=== PATIENT | male | born 1995 | race Caucasian/White ===

== ENCOUNTER 2021-10-28 04:02 | Emergency (ER) | payer SELFPAY ==
[~2021-10-28] VITALS: Ht 175.3 cm; Wt 70.3 kg
[2021-10-28] MEDS ORDERED: LORAZEPAM INJ 2 MG/ML VIAL ONE ×2 (04:08→04:52)
--- NOTE | 2021-10-28 04:16 | NUR ---
PATIENT [id number] AND [employer] FROM [address]RE[address] C/O USING [facility] 4 HOURS AGO PER EMS. PATIENT IS A/O X 2, RR EVEN AND UNLABORED. PATIENT TAKEN TO ER BED 14. PATIENT CONNECTED TO CARDIAC AND POX MONITORS. PATIENT YELLING AT STAFF, TRYING TO GET OUT OF BED, REMOVING LEADS, MADE AWARE.
--- NOTE | 2021-10-28 04:19 | NUR ---
UNABLE TO DRAW BLOOD AND COLLECTED URINE AT THIS TIME
[2021-10-28] MEDS ORDERED: LORAZEPAM INJ 2 MG/ML VIAL IM ONE ×2 (04:30→05:00)
[2021-10-28] MEDS ORDERED: diphenhydrAMINE HCL 50 MG/ML VIAL ONE (05:25)
[2021-10-28] MEDS ORDERED: HALOPERIDOL LACTATE INJ 5 MG/ML VIAL ONE (05:25)
[2021-10-28] MEDS ORDERED: diphenhydrAMINE HCL 50 MG/ML VIAL IM ONE (05:30)
[2021-10-28] MEDS ORDERED: HALOPERIDOL LACTATE INJ 5 MG/ML VIAL IM ONE (05:30)
--- NOTE | 2021-10-28 05:58 | NUR ---
BLOOD DRAWN AND SENT TO LAB.
[2021-10-28] MEDS ORDERED: IV NS 0.9% 1,000 ML IV ONE (06:30)
[2021-10-28 06:34] LABS: BASOPHILS % (AUTO) 0.2 % (0.0-2.0); EOSINOPHILS % (AUTO) 0.2 % (0.0-6.0); HEMATOCRIT 45 % (39-51); HEMOGLOBIN 14.8 g/dL (13.5-17.5); LYMPHOCYTES # (AUTO) 1.5 K/uL (0.8-4.8); LYMPHOCYTES % (AUTO) 10.1 % (20.0-44.0); MEAN CORPUSCULAR HGB CONC 33 g/dl (31.0-36.0); MEAN CORPUSCULAR VOLUME 90 fL (80-96); MONOCYTES # (AUTO) 1.2 K/uL (0.1-1.30); MONOCYTES % (AUTO) 7.9 % (2.0-12.0); NEUTROPHILS # (AUTO) 12.2 K/uL (1.8-8.9); NEUTROPHILS % (AUTO) 81.6 % (43.0-81.0); PLATELET COUNT (AUTO) 231 K/uL (150-450); RED BLOOD CELL COUNT(AUTO) 4.98 MIL/uL (4.5-6.0); WHITE BLOOD COUNT (AUTO) 14.9 K/uL (4.3-11.0)
[2021-10-28 06:45] LABS: ALANINE AMINOTRANSFERASE 61 U/L (12-78); ALBUMIN 4.3 g/dL (3.4-5.0); ALKALINE PHOSPHATASE 78 U/L (46-116); ASPARTATE AMINOTRANSFERASE 94 U/L (15-37); BILIRUBIN,DIRECT 0.5 mg/dL (0.0-0.2); BILIRUBIN,TOTAL 3.4 mg/dL (0.2-1.0); CALCIUM, SERUM 9.2 mg/dL (8.5-10.1); CARBON DIOXIDE 26 mmol/L (21-32); CHLORIDE 102 mmol/L (98-107); GLUCOSE 75 mg/dL (74-106); POTASSIUM 3.5 mmol/L (3.5-5.1); SODIUM SERUM 140 mmol/L (136-145); TOTAL PROTEIN, SERUM 7.5 g/dL (6.4-8.2); UREA NITROGEN, BLOOD 21 mg/dL (7-18)
[2021-10-28 06:56] LABS: ACETAMINOPHEN < 10 ug/ml (10-30); ALCOHOL, BLOOD < 3 mg/dL (0-0)
--- NOTE | 2021-10-28 11:30 | NUR ---
AROUSABLE BUT DROWSY,REFUSED LUNCH OFFERED
[2021-10-28 18:50] LABS: BILIRUBIN,URINE NEGATIVE (NEGATIVE); COLOR,URINE YELLOW (YELLOW); LEUKOCYTE ESTERASE ,URINE NEGATIVE (NEGATIVE); NITRITE, URINE NEGATIVE (NEGATIVE); PROTEIN,URINE NEGATIVE (NEGATIVE); UGLUCOSE NEGATIVE (NEGATIVE); UROBILINOGEN,URINE 0.2 EU/dL (0.2)
--- NOTE | 2021-10-29 00:49 | NUR ---
PATIENT A, OX3. AMBULAATORY WITH SSTABL EAITS. PO INTAKE TOLERATD WELL. NO N/V. VSS. DENIED ANY PAIN OR DISCOMFORT. DENIED SI/HI. REPORTED FEELING WELL AND WILLING TO LEAVE. MADE AWARE.
[2021-10-29 01:50] VITALS: BP 129/60
--- NOTE | 2021-10-29 01:50 | NUR ---
Patient discharged to home in stable condition. Written and verbal after care instructions given. Patient verbalizes understanding of instruction.
== END 2021-10-29 01:50 | disposition home or self-care (01) ==
LOC: ER 04:09
DX: F15.929 Other stimulant use, unspecified with intoxication, unspecified (principal); R45.1 Restlessness and agitation; F23 Brief psychotic disorder; R94.31 Abnormal electrocardiogram [ECG] [EKG]; Z60.2 Problems related to living alone
CPT/HCPCS: 99291; 96372 ×2; 96360; 93005; 85025; 80048; 80076; 81003; 36415; 80143; 80320; 80307; J2060 ×2; J1200; J1630; J7030; G0480